=== PATIENT | female | born 1955 | race Caucasian/White ===

== ENCOUNTER 2018-06-05 20:06 | Emergency (ER) | payer OTHER ==
--- NOTE | 2018-06-05 22:36 | ED ---
Back Pain - HPI Summary HPI Summary: This patient is a 62 year old F presenting to ED with a chief complaint of lower back pain since 1 week ago. The CC is described as intermittent and radiating down her L leg and worsened 2 days ago. The patient rates the pain 8/ 10 in severity. Symptoms aggravated by movement. Symptoms alleviated by nothing. Took Naproxen (500mg) and a muscle relaxant at 2200 today. Patient denies urinary problems. Patient is currently taking abx for a staph infection. PMHx of bulging disc. - History of Current Complaint Chief Complaint: EDBackInjuryPain Stated Complaint: BACK PAIN Time Seen by Provider: 06/05/18 22:23 Hx Obtained From: Patient Onset/Duration: Sudden Onset, Lasting Weeks, Still Present Onset/Duration: Still Present Timing: Intermittent Back Pain Location: Is Discrete @ - lower back pain, radiating down to L leg Severity Initially: Severe Severity Currently: Severe Pain Intensity: 8 Pain Scale Used: 0-10 Numeric Aggravating Symptom(s): Movement Alleviating Symptom(s): Nothing - Allergies/Home Medications Allergies/Adverse Reactions: Allergies Allergy/AdvReac Type Severity Reaction Status Date / Time bee venom protein (honey bee) Allergy Hives Verified 06/07/18 14:22 PMH/Surg Hx/FS Hx/Imm Hx Endocrine/Hematology History: Denies: Hx Sickle Cell Disease Cardiovascular History: Denies: Other Cardiovascular Problems/Disorders Respiratory History: Denies: Other Respiratory Problems/Disorders GI History: Denies: Other GI Disorders History: Denies: Other Problems/Disorders Sensory History: Denies: Hx Contacts or Glasses, Hx Hearing Aid Opthamlomology History: Denies: Hx Contacts or Glasses Neurological History: Reports: Hx Migraine - Cancer History Hx Chemotherapy: No Hx Radiation Therapy: No - Surgical History Surgery Procedure, Year, and Place: - 79,82. OVARY REMOVAL - 15 YRS AGO. APPENDECTOMY 1981. [place] [facility] [place] [facility] [place] Anesthesia Reactions: No Infectious Disease History: No Infectious Disease History: Denies: Traveled Outside the [place] in Last 30 Days - Family History Known Family History: Negative: Cardiac Disease, Hypertension, Diabetes - Social History Alcohol Use: None Substance Use Type: Reports: None Smoking Status (MU): Current Every Day Smoker Type: Cigarettes Amount Used/How Often: 1 PACK/WEEK Review of Systems Positive: no symptoms reported Positive: Other - lower back pain radiating to her L leg All Other Systems Reviewed And Are Negative: Yes Physical Exam - Summary Physical Exam Summary: VITAL SIGNS: Reviewed. GENERAL: Patient is a well-developed and nourished FEMALE who is lying comfortable in the stretcher. Patient is not in any acute respiratory distress. HEAD AND FACE: No signs of trauma. No ecchymosis, hematomas or skull depressions. No sinus tenderness. EYES: PERRLA, EOMI x 2, No injected conjunctiva, no nystagmus. EARS: Hearing grossly intact. Ear canals and tympanic membranes are within normal limits. MOUTH: Oropharynx within normal limits. NECK: Supple, trachea is midline, no adenopathy, no JVD, no carotid bruit, no c- spine tenderness, neck with full ROM. CHEST: Symmetric, no tenderness at palpation LUNGS: Clear to auscultation bilaterally. No wheezing or crackles. CVS: Regular rate and rhythm, S1 and S2 present, no murmurs or gallops appreciated. ABDOMEN: Soft, non-tender. No signs of distention. No rebound no guarding, and no masses palpated. Bowel sounds are normal. EXTREMITIES: FROM in all major joints, no edema, no cyanosis or clubbing. L straight leg raise test is positive at 60 degrees. R straight leg test is negative. No lumbar sacral tenderness. NEURO: Alert and oriented x 3. No acute neurological deficits. Speech is normal and follows commands. SKIN: Dry and warm Triage Information Reviewed: Yes Vital Signs On Initial Exam: Initial Vitals Temp Pulse Resp BP Pulse Ox 98.1 F 112 16 102/88 100 06/05/18 20:24 06/05/18 20:24 06/05/18 20:24 06/05/18 20:24 06/05/18 20:24 Vital Signs Reviewed: Yes Diagnostics - Vital Signs Vital Signs Temp Pulse Resp BP Pulse Ox 06/05/18 20:24 98.1 F 112 16 102/88 100 - Laboratory Lab Statement: Any lab studies that have been ordered have been reviewed, and results considered in the medical decision making process. Back Pain Course/Dx - Course Assessment/Plan: This patient is a 62 year old F presenting to ED with a chief complaint of lower back pain since 1 week ago. In the ED course, the patient was given toradol, percocet, and prednisone. The patient will be discharged. Patient understands and agrees with this plan. - Diagnoses Provider Diagnoses: Left sided sciatica Discharge - Sign-Out/Discharge Documenting (check all that apply): Patient Departure - discharge - Discharge Plan Condition: Stable Disposition: HOME Prescriptions: Ibuprofen TAB* [Motrin TAB* 800 MG] 800 mg PO Q6H #30 tab oxyCODONE/Acetamin 5/325 MG* [Percocet 5/325 TAB*] 1 tab PO Q6H PRN #14 tab MDD 4 PRN Reason: Pain predniSONE TAB* [Deltasone 20 MG TAB*] 40 mg PO DAILY #10 tab Patient Education Materials: Sciatica (ED) Referrals: Martin Bar MD [Primary Care Provider] - (Follow up in 1-2 days.) Additional Instructions: RETURN TO THE EMERGENCY DEPARTMENT FOR CHANGING OR WORSENING SYMPTOMS. FOLLOW UP WITH PCP IN 1-2 DAYS. - Billing Disposition and Condition Condition: STABLE Disposition: Home - Attestation Statements Document Initiated by Scribe: Yes Documenting Scribe: Paul Mancera Provider For Whom Alexise is Documenting (Include Credential): Livier Vaca MD Scribe Attestation: Paul Cordero, scribed for Livier Vaca MD on 06/11/18 at 0315. Scribe Documentation Reviewed: Yes Provider Attestation: The documentation as recorded by the Paul woods accurately reflects the service I personally performed and the decisions made by Sulma garibay MD Status of Scribe Document: Viewed
[2018-06-05] MEDS ORDERED: predniSONE TAB* 20 MG PO ONE (22:40)
[2018-06-05] MEDS ORDERED: Ketorolac INJ* 60 MG/2 ML VIAL IM ONE (22:40)
[2018-06-05] MEDS ORDERED: oxyCODONE/Acetamin 5/325 MG* TAB PO ONE (22:40)
[2018-06-06 00:17] VITALS: BP 116/63
== END 2018-06-06 00:16 | disposition home or self-care (01) ==
LOC: ED 20:06
DX: M54.42 Lumbago with sciatica, left side (principal); Z91.030 Bee allergy status; F17.210 Nicotine dependence, cigarettes, uncomplicated
CPT/HCPCS: 96372; 99282; A9270-GY; J1885; J7512

== ENCOUNTER → 2018-06-07 14:15 | Emergency (ER) | payer OTHER ==
[~2018-06-07 14:15] MED LIST: Ketorolac INJ* 30 MG/ML 1 ML VIAL IM ONE; Lidocaine PATCH 5%* 1 PATCH TRANSDERM SCH; Lidocaine Patch REMOVE* 1 NOTE MISC PATCH OFF SCH; Morphine VIAL* 10 MG/ML 1 ML VIAL IM ONE; Morphine VIAL* 4 MG/ML VIAL (1 ml vial) IM ONE; Morphine VIAL* 4 MG/ML VIAL (1 ml vial) ONE
[2018-06-07 14:22] VITALS: BP 121/82
--- NOTE | 2018-06-07 16:09 | ED ---
Back Pain - HPI Summary HPI Summary: 62-year-old female presents with left leg pain today. She she just has history of a back pain. She states she has not had imaging in a while. She states she' s had pain down her left leg. Has swelling on the posterior aspect of her left thigh. She is a smoker. She has a family history of blood clots. She denies any recent travel and she is not on hormone replacement. She denies any chest pain or shortness breath. She denies urinary symptoms. No loss of bowel or bladder saddle anesthesias. No fevers. She has been taking pain medication prescribed for her couple days ago but has not been working. She also states she's been constipated. is prescribed doxycycline for staph infection of her anal region. She states that that staph infection has been resolving. she is still able to ambulate with pain. Pain is better when she is ambulating. - History of Current Complaint Chief Complaint: EDExtremityLower Stated Complaint: LEG AND HIP PAIN ON LEFT SIDE Time Seen by Provider: 06/07/18 15:54 Pain Intensity: 10 - Allergies/Home Medications Allergies/Adverse Reactions: Allergies Allergy/AdvReac Type Severity Reaction Status Date / Time bee venom protein (honey bee) Allergy Hives Verified 06/07/18 14:22 PMH/Surg Hx/FS Hx/Imm Hx Endocrine/Hematology History: Denies: Hx Sickle Cell Disease Cardiovascular History: Denies: Other Cardiovascular Problems/Disorders Respiratory History: Denies: Other Respiratory Problems/Disorders GI History: Denies: Other GI Disorders History: Denies: Other Problems/Disorders Sensory History: Denies: Hx Contacts or Glasses, Hx Hearing Aid Opthamlomology History: Denies: Hx Contacts or Glasses Neurological History: Reports: Hx Migraine - Cancer History Hx Chemotherapy: No Hx Radiation Therapy: No - Surgical History Surgery Procedure, Year, and Place: - 79,82. OVARY REMOVAL - 15 YRS AGO. APPENDECTOMY 1981. ALL SURGERIES DONE AT [facility] – [place] Hx Anesthesia Reactions: No Infectious Disease History: No Infectious Disease History: Denies: Traveled Outside the [place] in Last 30 Days - Family History Known Family History: Negative: Cardiac Disease, Hypertension, Diabetes - Social History Alcohol Use: None Substance Use Type: Reports: None Smoking Status (MU): Current Every Day Smoker Type: Cigarettes Amount Used/How Often: 1 PACK/WEEK Review of Systems Negative: Fever Negative: Chest Pain Negative: Shortness Of Breath Positive: Myalgia - back pain All Other Systems Reviewed And Are Negative: Yes Physical Exam Triage Information Reviewed: Yes Vital Signs On Initial Exam: Initial Vitals Temp Pulse Resp BP Pulse Ox 98.4 F 104 16 121/82 99 06/07/18 14:19 06/07/18 14:19 06/07/18 14:19 06/07/18 14:19 06/07/18 14:19 Vital Signs Reviewed: Yes Appearance: Positive: Well-Appearing Skin: Positive: Warm, Dry Head/Face: Positive: Normal Head/Face Inspection Eyes: Positive: Normal, EOMI, [place], Conjunctiva Clear ENT: Positive: Normal ENT inspection, Pharynx normal, TMs normal Respiratory/Lung Sounds: Positive: Clear to Auscultation, Breath Sounds Present Cardiovascular: Positive: Normal, RRR Musculoskeletal: Positive: Limited @ - back, Other - tenderness posterior left leg, pos SLR left, good pulses Neurological: Positive: Sensory/Motor Intact, Reflexes Intact - patella, Normal Gait Psychiatric: Positive: Normal Diagnostics - Vital Signs Vital Signs Temp Pulse Resp BP Pulse Ox 06/07/18 14:19 98.4 F 104 16 121/82 99 - Laboratory Lab Statement: Any lab studies that have been ordered have been reviewed, and results considered in the medical decision making process. - CT back CT Interpretation Completed By: Radiologist Summary of CT Findings: IMPRESSION: Mild multilevel lumbar spondylopathy. No canal stenosis or nerve root. compression. - Ultrasound No standard instances Ultrasound Interpretation Completed By: Radiologist Summary of Ultrasound Findings: normal Back Pain Course/Dx - Course Course Of Treatment: 62-year-old female presents with left leg pain today. She she just has history of a back pain. She states she has not had imaging in a while. She states she's had pain down her left leg. Has swelling on the posterior aspect of her left thigh. She is a smoker. She has a family history of blood clots. She denies any recent travel and she is not on hormone replacement. She denies any chest pain or shortness breath. She denies urinary symptoms. No loss of bowel or bladder saddle anesthesias. No fevers. She has been taking pain medication prescribed for her couple days ago but has not been working. She also states she's been constipated. is prescribed doxycycline for staph infection of her anal region. She states that that staph infection has been resolving. she is still able to ambulate with pain. Pain is better when she is ambulating. on exam tenderness left side of lower back over SI joint, tenderness left thigh. neurovascular intact. u/s normal. CT shows degenerative changes. will give referral to pt. told to follow up with primary. patient understand and agrees with plan. - Diagnoses Differential Diagnosis/HQI/PQRI: Positive: Herniated Disc, Strain, Sprain Provider Diagnoses: Back pain Discharge - Sign-Out/Discharge Documenting (check all that apply): Patient Departure - Discharge Plan Condition: Good Disposition: HOME Patient Education Materials: Back Pain (ED) Forms: *Work Release Referrals: Martin Bar MD [Primary Care Provider] - [facility] [place] Physical therapy,PT [Medical Doctor] - Additional Instructions: Follow up with physical therapy continue medications heat/stretch move as much as tolerated Follow up with primary within 5 days Return to ED if develop any new or worsening symptoms - Billing Disposition and Condition Condition: GOOD Disposition: Home
== END | disposition home or self-care (01) ==
LOC: ED 14:15
DX: M54.9 Dorsalgia, unspecified (principal); F17.210 Nicotine dependence, cigarettes, uncomplicated; Z83.2 Family history of diseases of the blood and blood-forming organs and certain disorders involving the immune mechanism
CPT/HCPCS: 72131; 96372; 99282; A9270-GY; J1885; J2270

== ENCOUNTER 2018-11-06 18:45 | Emergency (ER) | payer OTHER ==
[2018-11-06 19:07] VITALS: BP 100/62
[2018-11-06] MEDS ORDERED: Polymyx/Trimethoprim OPTH* 10 ML BTL LEFT EYE ONE (20:11)
--- NOTE | 2018-11-06 20:11 | UC ---
Eye Complaint HPI - HPI Summary HPI Summary: awoke with crusty red left eye, no contact no visual deficits - History of Current Complaint Chief Complaint: UCEye Stated Complaint: RED ITCHY EYE Time Seen by Provider: 11/06/18 20:04 Hx Obtained From: Patient ?: No Onset/Duration: Sudden Onset, Lasting Days - 1 Timing: Constant Pain Intensity: 1 Pain Scale Used: 0-10 Numeric Location of Injury: Conjunctiva Aggravating Factor(s): Nothing Alleviating Factor(s): Nothing Associated Signs And Symptoms: Positive: Drainage (Clear) - Allergies/Home Medications Allergies/Adverse Reactions: Allergies Allergy/AdvReac Type Severity Reaction Status Date / Time bee venom protein (honey bee) Allergy Hives Verified 11/06/18 19:07 Home Medications: Home Medications Aspirin/Acetaminophen/Caffeine [Excedrin Migraine Geltab] 1 each PO Q6HR [History Confirmed 11/06/18] PMH/Surg Hx/FS Hx/Imm Hx Previously Healthy: Yes - Surgical History Surgical History: Yes Surgery Procedure, Year, and Place: - ,82. OVARY REMOVAL - 15 YRS AGO. APPENDECTOMY 1981. ALL SURGERIES DONE AT [facility] – [place]. [place] - Family History Known Family History: Negative: Cardiac Disease, Hypertension, Diabetes - Social History Occupation: Employed Full-time Lives: With Family Alcohol Use: None Substance Use Type: None Smoking Status (MU): Light Every Day Tobacco Smoker Type: Cigarettes Amount Used/How Often: 1 PACK/WEEK Review of Systems All Other Systems Reviewed And Are Negative: Yes Constitutional: Positive: Negative Skin: Positive: Negative Eyes: Positive: Drainage - clear, Eye Redness - left ENT: Positive: Negative Respiratory: Positive: Negative Cardiovascular: Positive: Negative Gastrointestinal: Positive: Negative Genitourinary: Positive: Negative Motor: Positive: Negative Neurovascular: Positive: Negative Musculoskeletal: Positive: Negative Neurological: Positive: Negative Psychological: Positive: Negative Is Patient Immunocompromised?: No Physical Exam Triage Information Reviewed: Yes Appearance: Well-Appearing, No Pain Distress, Well-Nourished Vital Signs: Initial Vital Signs Temp 99.2 F 11/06/18 19:02 Pulse 95 11/06/18 19:02 Resp 16 11/06/18 19:02 BP 100/62 11/06/18 19:02 Pulse Ox 100 11/06/18 19:02 Vital Signs Reviewed: Yes Eye Exam: Normal - right Eyes: Positive: Conjunctiva Inflamed - left, Discharge - clear-left ENT Exam: Normal ENT: Positive: Normal ENT inspection, Hearing grossly normal, Pharynx normal, TMs normal, Uvula midline. Negative: Nasal congestion, Trismus, Muffled voice, Hoarse voice, Dental tenderness, Sinus tenderness Dental Exam: Normal Neck exam: Normal Neck: Positive: Supple, Nontender Respiratory Exam: Normal Respiratory: Positive: Chest non-tender, No respiratory distress, No accessory muscle use Cardiovascular Exam: Normal Cardiovascular: Positive: RRR, Brisk Capillary Refill Musculoskeletal Exam: Normal Musculoskeletal: Positive: Strength Intact, ROM Intact, No Edema Neurological Exam: Normal Neurological: Positive: Alert, Muscle Tone Normal Psychological Exam: Normal Skin Exam: Normal Eye Complaint Course/Dx - Course Course Of Treatment: polytrim drops, warm compress, follow with opthomology if not resolved in 2-3 days - Differential Dx/Diagnosis Provider Diagnosis: Acute bacterial conjunctivitis of left eye Discharge - Sign-Out/Discharge Documenting (check all that apply): Patient Departure All imaging exams completed and their final reports reviewed: No Studies - Discharge Plan Condition: Stable Disposition: HOME Patient Education Materials: How to Use Eye Drops (ED), Conjunctivitis (ED) Referrals: Duc White MD [Medical Doctor] - If Needed - Billing Disposition and Condition Condition: STABLE Disposition: Home
== END 2018-11-06 20:32 | disposition home or self-care (01) ==
LOC: UCEAST 18:45
DX: H10.32 Unspecified acute conjunctivitis, left eye (principal); Z91.030 Bee allergy status; F17.210 Nicotine dependence, cigarettes, uncomplicated
CPT/HCPCS: 99212; G0463